=== PATIENT | female | born 1935 | race Caucasian/White ===

== ENCOUNTER 2017-10-03 17:18 | Emergency (ER) | payer MEDICARE ==
[2017-10-03] MEDS ORDERED: LABETALOL HCL 5 MG/ML 20ML VIAL IV ONE (17:57)
[2017-10-03] MEDS ORDERED: OXYMETAZOLINE HCL SPRAY 15 ML BOTTLE ONE (17:58)
[2017-10-03 18:17] LABS: BASOPHILS % (AUTO) 1.1 % (0.0-5.0); EOSINOPHILS % (AUTO) 2.5 % (0.0-8.0); HEMATOCRIT 39.2 % (36-48); LYMPHOCYTES % (AUTO) 36.1 % (21.0-51.0); MEAN CORPUSCULAR HEMOGLOBIN 30.4 pg (27.0-33.0); MEAN CORPUSCULAR HGB CONC 34.5 g/dL (32.0-36.0); MEAN CORPUSCULAR VOLUME 88.1 fL (79-99); NEUTROPHILS % (AUTO) 54.3 % (40.0-77.0); NUCLEATED RED BLOOD CELLS 0.1 % (0.0-0.19); PLATELET COUNT (AUTO) 216 K/uL (130-400); RED BLOOD CELL COUNT(AUTO) 4.45 MIL/uL (4.00-5.50); RED CELL DISTRIBUTION WIDTH 15.1 % (11.0-15.5); WHITE BLOOD COUNT (AUTO) 5.2 K/uL (4.8-10.8)
[2017-10-03 18:30] LABS: CREATININE 0.8 mg/dL (0.5-1.5)
[2017-10-03 18:31] LABS: INR 0.95 (0.85-1.15); PARTIAL THROMBOPLASTIN TIME 27.1 SEC (26.3-35.5)
[2017-10-03 19:01] LABS: APPEARANCE,URINE Clear (CLEAR); BILIRUBIN,URINE Negative (NEGATIVE); COLOR,URINE Yellow (YELLOW); GLUCOSE, URINE (UA) Negative (NEGATIVE); KETONES,URINE Negative (NEGATIVE); LEUKOCYTE ESTERASE ,URINE Negative (NEGATIVE); NITRATE,URINE Negative (NEGATIVE); OCCULT BLOOD,URINE Trace (NEGATIVE); PH,URINE 7.5 (5.0-8.0); PROTEIN,URINE Negative (NEGATIVE); UROBILINOGEN,URINE 0.2 mg/dL (0.2-1.0)
[2017-10-03 19:29] LABS: ALBUMIN 3.9 g/dL (3.5-5.0); BILIRUBIN,TOTAL 0.5 mg/dL (0.2-1.0); TOTAL PROTEIN, SERUM 7.7 g/dL (6.0-8.3)
[2017-10-03 19:32] LABS: BACTERIA,URINE None Seen /HPF (None Seen); RBC,URINE 0-1 /HPF (0-1); SQUAMOUS EPITHELIAL CELL,UR None Seen /HPF (0-2); WBC,URINE None Seen /HPF (0-1)
== END 2017-10-03 19:21 | disposition home or self-care (01) ==
LOC: EDH 17:18
DX: R04.0 Epistaxis (principal); I10 Essential (primary) hypertension; Z88.8 Allergy status to other drugs, medicaments and biological substances; Z79.899 Other long term (current) drug therapy
CPT/HCPCS: 36415; 80053; 81001; 85025; 85610; 85730; 96374; 99284; J3490

== ENCOUNTER → 2019-06-02 | Outpatient (CLI) | payer MEDICARE | END | disposition home or self-care (01) | LOC: RAH 09:09 | PROVIDERS: ATTEND Internal Medicine | DX: R92.2 Inconclusive mammogram (principal); Z85.3 Personal history of malignant neoplasm of breast | CPT/HCPCS: 77065 ==

== ENCOUNTER 2019-09-16 06:58 | Emergency (ER) | payer MEDICARE | END 2019-09-16 08:00 | disposition home or self-care (01) | LOC: EDH 06:58 | DX: S52.601A Unspecified fracture of lower end of right ulna, initial encounter for closed fracture (principal); I10 Essential (primary) hypertension; Z88.6 Allergy status to analgesic agent; W18.39XA Other fall on same level, initial encounter; Y93.89 Activity, other specified; Y92.098 Other place in other non-institutional residence as the place of occurrence of the external cause; Y99.8 Other external cause status | CPT/HCPCS: 29125; 73110 ==

== ENCOUNTER → 2020-07-23 | Outpatient (CLI) | payer MEDICARE | END | disposition home or self-care (01) | LOC: OIH 09:17 | PROVIDERS: ATTEND Internal Medicine | DX: M16.0 Bilateral primary osteoarthritis of hip (principal) | CPT/HCPCS: 73502 ==

== ENCOUNTER 2020-07-24 03:00 | Emergency (ER) | payer MEDICARE ==
[2020-07-24] MEDS ORDERED: ONDANSETRON HCL 4 MG/2 ML VIAL ONE (03:58)
[2020-07-24 04:01] LABS: BASOPHILS % (AUTO) 0.9 % (0.0-5.0); EOSINOPHILS % (AUTO) 1.7 % (0.0-8.0); HEMATOCRIT 40.9 % (36-48); LYMPHOCYTES % (AUTO) 35.6 % (21.0-51.0); MEAN CORPUSCULAR HEMOGLOBIN 30.9 pg (27.0-33.0); MEAN CORPUSCULAR HGB CONC 33.7 g/dL (32.0-36.0); MEAN CORPUSCULAR VOLUME 91.7 fL (79-99); MONOCYTES % (AUTO) 6.8 % (3.0-13.0); NEUTROPHILS % (AUTO) 54.8 % (40.0-77.0); PLATELET COUNT (AUTO) 291 K/uL (130-400); RED BLOOD CELL COUNT(AUTO) 4.46 MIL/uL (4.00-5.50); RED CELL DISTRIBUTION WIDTH 14.1 % (11.0-15.5); WHITE BLOOD COUNT (AUTO) 6.6 K/uL (4.8-10.8)
[2020-07-24 04:09] LABS: CREATININE 0.9 mg/dL (0.5-1.5); POTASSIUM 4.1 mmol/L (3.5-5.1)
[2020-07-24 04:17] LABS: ALBUMIN 4.2 g/dL (3.5-5.0); BILIRUBIN,TOTAL 0.6 mg/dL (0.2-1.0); TOTAL PROTEIN, SERUM 7.6 g/dL (6.0-8.3)
[2020-07-24] MEDS ORDERED: LORAZEPAM 2 MG/ML 1 ML VIAL ONE (05:11)
[2020-07-24] MEDS ORDERED: PROCHLORPERAZINE EDISYLATE 10 MG/2 ML VIAL ONE (05:11)
[2020-07-24] MEDS ORDERED: SODIUM CHLORIDE 0.9% 50 ML IV ONE (05:12)
[2020-07-24 06:02] LABS: PROTHROMBIN TIME 10.9 SEC (9.6-11.6)
[2020-07-24 06:03] LABS: PARTIAL THROMBOPLASTIN TIME 25.4 SEC (26.3-35.5)
== END 2020-07-24 07:37 | disposition home or self-care (01) ==
LOC: EDH 03:00
DX: R42 Dizziness and giddiness (principal); R94.31 Abnormal electrocardiogram [ECG] [EKG]; R11.0 Nausea; R53.1 Weakness; R19.7 Diarrhea, unspecified; I10 Essential (primary) hypertension; M19.90 Unspecified osteoarthritis, unspecified site; Z88.8 Allergy status to other drugs, medicaments and biological substances; Z90.710 Acquired absence of both cervix and uterus; Z90.49 Acquired absence of other specified parts of digestive tract; Z79.899 Other long term (current) drug therapy
CPT/HCPCS: 36415; 70450; 71045; 80053; 82948; 83690; 84484; 85025; 85610; 85730; 93005 ×3; 96374; 96375; 99285; J0780; J2060; J2405

== ENCOUNTER → 2020-08-07 | Outpatient (CLI) | payer MEDICARE | END | disposition home or self-care (01) | LOC: OIH 10:09 | PROVIDERS: ATTEND Internal Medicine | DX: M16.12 Unilateral primary osteoarthritis, left hip (principal); M25.752 Osteophyte, left hip; M24.852 Other specific joint derangements of left hip, not elsewhere classified | CPT/HCPCS: 73502 ==

== ENCOUNTER → 2020-08-15 | Outpatient (CLI) | payer MEDICARE | END | disposition home or self-care (01) | LOC: OIH 09:29 | PROVIDERS: ATTEND Internal Medicine | DX: J44.9 Chronic obstructive pulmonary disease, unspecified (principal); I10 Essential (primary) hypertension; M47.814 Spondylosis without myelopathy or radiculopathy, thoracic region; M85.88 Other specified disorders of bone density and structure, other site | CPT/HCPCS: 71046 ==

== ENCOUNTER → 2021-05-15 | Outpatient (CLI) | payer MEDICARE | END | disposition home or self-care (01) | LOC: RAH 09:32 | PROVIDERS: ATTEND Internal Medicine | DX: I10 Essential (primary) hypertension (principal) | CPT/HCPCS: 71046 ==

== ENCOUNTER → 2022-02-24 | Outpatient (CLI) | payer MEDICARE | END | disposition home or self-care (01) | LOC: RAH 09:35 | PROVIDERS: ATTEND Internal Medicine | DX: S80.01XA Contusion of right knee, initial encounter (principal); X58.XXXA Exposure to other specified factors, initial encounter; Y93.89 Activity, other specified; Y92.89 Other specified places as the place of occurrence of the external cause; Y99.8 Other external cause status; M17.31 Unilateral post-traumatic osteoarthritis, right knee | CPT/HCPCS: 73562 ==

== ENCOUNTER → 2022-03-27 | Outpatient (CLI) | payer MEDICARE | END | disposition home or self-care (01) | LOC: RAH 09:13 | PROVIDERS: ATTEND Internal Medicine | DX: M25.571 Pain in right ankle and joints of right foot (principal); M19.071 Primary osteoarthritis, right ankle and foot; M85.80 Other specified disorders of bone density and structure, unspecified site | CPT/HCPCS: 73600; 73620 ==

== ENCOUNTER → 2022-07-04 | Outpatient (CLI) | payer MEDICARE | END | disposition home or self-care (01) | LOC: RAH 08:34 | PROVIDERS: ATTEND Internal Medicine | DX: R92.2 Inconclusive mammogram (principal); Z85.3 Personal history of malignant neoplasm of breast; Z90.11 Acquired absence of right breast and nipple | CPT/HCPCS: 77065 ==

== ENCOUNTER → 2023-05-19 | Outpatient (CLI) | payer MEDICARE | END | disposition home or self-care (01) | LOC: RAH 09:47 | PROVIDERS: ATTEND Internal Medicine | DX: M16.11 Unilateral primary osteoarthritis, right hip (principal); I10 Essential (primary) hypertension; M25.551 Pain in right hip; M47.26 Other spondylosis with radiculopathy, lumbar region; M41.26 Other idiopathic scoliosis, lumbar region; J84.10 Pulmonary fibrosis, unspecified; M47.25 Other spondylosis with radiculopathy, thoracolumbar region | CPT/HCPCS: 71046; 72100; 73502 ==

== ENCOUNTER 2023-08-27 18:05 | Emergency (ER) | payer MEDICARE ==
[~2023-08-27] VITALS: Ht 165.1 cm; Wt 56.7 kg
[2023-08-27] MEDS: ASPIRIN 325MG TAB PO ONE (18:50)
[2023-08-27 19:44] LABS: BASOPHILS # (AUTO) 0.03 K/uL (0.00-0.20); BASOPHILS % (AUTO) 0.3 % (0.0-5.0); EOSINOPHILS # (AUTO) 0.05 K/uL (0.00-0.70); EOSINOPHILS % (AUTO) 0.5 % (0.0-8.0); HEMATOCRIT 39.2 % (36-48); IMMATURE GRANULOCYTE ABSOLUTE 0.03 K/uL (0-1); LYMPHOCYTES # (AUTO) 1.8 K/uL (1.0-4.8); LYMPHOCYTES % (AUTO) 17.7 % (21.0-51.0); MEAN CORPUSCULAR HEMOGLOBIN 30.4 pg (27.0-33.0); MEAN CORPUSCULAR HGB CONC 34.4 g/dL (32.0-36.0); MEAN CORPUSCULAR VOLUME 88.3 fL (79-99); MONOCYTES # (AUTO) 0.5 K/uL (0.1-1.0); MONOCYTES % (AUTO) 5.1 % (3.0-13.0); NEUTROPHILS # (AUTO) 7.6 K/uL (1.8-7.7); NEUTROPHILS % (AUTO) 76.1 % (40.0-77.0); PLATELET COUNT (AUTO) 206 K/uL (130-400); RED BLOOD CELL COUNT(AUTO) 4.44 MIL/uL (4.00-5.50); RED CELL DISTRIBUTION WIDTH 13.7 % (11.0-15.5)
[2023-08-27 20:02] LABS: B-TYPE NATRIURETIC PEPTIDE 195 pg/mL (0-100)
[2023-08-27 20:09] LABS: BILIRUBIN,TOTAL 0.4 mg/dL (0.2-1.0); CREATININE 0.9 mg/dL (0.5-1.0); MAGNESIUM 1.9 mg/dL (1.80-2.40); POTASSIUM 4.6 mmol/L (3.5-5.1); TOTAL PROTEIN, SERUM 7.5 g/dL (6.0-8.3)
[2023-08-27 21:09] LABS: ADD UA MICROSCOPIC NO; APPEARANCE,URINE CLEAR (CLEAR); BILIRUBIN,URINE NEGATIVE (NEGATIVE); COLOR,URINE COLORLESS (YELLOW); GLUCOSE, URINE (UA) NEGATIVE (NEGATIVE); KETONES,URINE NEGATIVE (NEGATIVE); LEUKOCYTE ESTERASE ,URINE NEGATIVE Leu/uL (NEGATIVE); NITRATE,URINE NEGATIVE (NEGATIVE); OCCULT BLOOD,URINE NEGATIVE (NEGATIVE); PROTEIN,URINE NEGATIVE (NEGATIVE); UROBILINOGEN,URINE 0.2 mg/dL (0.2-1.0)
[2023-08-27 21:50] VITALS: BP 150/87; PULSE 68; RESP 16; O2SAT 97
== END 2023-08-27 21:53 | disposition home or self-care (01) ==
LOC: EDH 18:05
DX: F41.0 Panic disorder [episodic paroxysmal anxiety] (principal); N18.9 Chronic kidney disease, unspecified; Z88.8 Allergy status to other drugs, medicaments and biological substances
CPT/HCPCS: 36415; 71045; 80053; 81003; 83735; 83880; 84484; 85025; 93005

== ENCOUNTER → 2024-02-25 | Outpatient (CLI) | payer MEDICARE | END | disposition home or self-care (01) | LOC: RAH 13:29 | PROVIDERS: ATTEND Internal Medicine | DX: N64.89 Other specified disorders of breast (principal); Z85.3 Personal history of malignant neoplasm of breast | CPT/HCPCS: 77065 ==

== ENCOUNTER 2024-05-14 07:53 | Emergency (ER) | payer MEDICARE ==
[~2024-05-14] VITALS: Ht 157.5 cm; Wt 68.0 kg
[~2024-05-14 07:53] MED LIST: GABA-529 PO; HYDR25TA PO; MECL-226 PO; PANT40TA54 PO; SPIR50TA5 PO
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
--- NOTE | 2024-05-14 08:52 | HMCIMG ---
Exam Type: PELVIS 1-2VWS Clinical Information: increased pain post fx Comparison: None Findings and impression: Bilateral hip replacement. Fractures of the proximal aspect of the left superior pubic ramus and the distal aspect of the left inferior pubic ramus, minimally displaced. Osteopenia. Preliminary report with this information was sent by the on-call radiologist to ordering physicians time of exam.
--- NOTE | 2024-05-14 10:20 | HMCIMG ---
Exam Type: CT PELVIS W/O CONTRAST, CT LUMBAR SPINE W/O CONTRAST Clinical Information: new rt SI pain Comparison: None Findings: Osteopenia. Status post bilateral hip replacement, with adequate alignment of both prosthesis. Acute fracture proximal aspect left superior pubic ramus and mid to distal aspect left inferior pubic ramus. In addition, comminuted fractures involving both sacral wings without significant displacement. Degenerative changes of the visualized lumbar spine. No soft tissue acute abnormalities. The lumbar spine demonstrates osteopenia as well as degenerative disc changes at multiple levels. Degeneration of the facets seen as well. No acute lumbar vertebral body fractures. IMPRESSION: Left obturator ring fractures. Bilateral sacral wing fractures. Osteopenia. Degenerative changes.
[2024-05-14 12:22] VITALS: BP 141/68; PULSE 67; RESP 20; TEMP 98.3; O2SAT 98
[2024-05-14] MEDS: HYDROcodone/APAP 5/325 1 TAB TABLET PO ONE (13:07)
[2024-05-14] MEDS ORDERED: LACT10SO85 PO (13:08)
== END 2024-05-14 13:24 | disposition home or self-care (01) ==
LOC: EDH 07:53 → EDBD 07:53 → EDH 13:24
DX: S32.592A Other specified fracture of left pubis, initial encounter for closed fracture (principal); S32.512A Fracture of superior rim of left pubis, initial encounter for closed fracture; S32.10XA Unspecified fracture of sacrum, initial encounter for closed fracture; R10.2 Pelvic and perineal pain; K59.00 Constipation, unspecified; I10 Essential (primary) hypertension; Z79.899 Other long term (current) drug therapy; Z90.49 Acquired absence of other specified parts of digestive tract; Z90.710 Acquired absence of both cervix and uterus; Z96.643 Presence of artificial hip joint, bilateral; V19.9XXA Pedal cyclist (driver) (passenger) injured in unspecified traffic accident, initial encounter; Y93.89 Activity, other specified; Y92.89 Other specified places as the place of occurrence of the external cause; Y99.8 Other external cause status
CPT/HCPCS: 72131; 72170; 72192; 99285

== ENCOUNTER 2024-05-16 12:50 | Emergency (ER) | payer MEDICARE ==
[~2024-05-16] VITALS: Ht 165.1 cm; Wt 56.7 kg
[~2024-05-16 12:50] MED LIST changes: +LACT10SO85 PO
--- NOTE | 2024-05-16 13:21 | ERN ---
ED Note History of Present Illness Stated Complaint: R HIP PAIN S/P SX Chief Complaint: Hip Pain/Injury Time Seen by MD: 12:55 Dictation: 88-year-old female presents to the ED for evaluation of right hip pain worsening this morning. Patient denies any fall, trauma, injury or any other associated symptoms at this time. Patient states she is coming from residence where she is usually able to ambulate without assistance. Patient has history of hip surgery couple of years ago. Allergies: Uncoded Allergies: PADSON (Allergy, Severe, 04/15/17) Home Meds Active Scripts Lactulose (Lactulose) 10 Gram/15 Ml Solution, 30 ML PO BID for constipation, #500 ML 0 Refills Prov:MARQUES OSEGUERA MD 05/14/24 Reported Medications Spironolactone (Spironolactone) 50 Mg Tablet, 1 TAB PO DAILY for 30 Days, #30 TAB 0 Refills 04/09/24 Gabapentin (Gabapentin) 100 Mg Capsule, 300 MG PO DAILY, CAP 04/09/24 Pantoprazole Sodium (Pantoprazole Sodium) 40 Mg Tablet.dr, 1 TAB PO DAILY for 30 Days, #30 TAB 0 Refills 04/09/24 Hydrochlorothiazide (Hydrochlorothiazide) 25 Mg Tablet, 1 TAB PO DAILY for 30 Days, #30 TAB 0 Refills 04/09/24 Meclizine HCl (Meclizine HCl) 12.5 Mg Tablet, 12.5 MG PO TID, TAB 04/09/24 Past Medical History Past Medical History: Cancer, Hypertension, Other Additional Past Medical Hx: R HIP FX, L BREAST AND L CHEECK CA Surgical History: Other Surgical History Other: R HIP FX History: Not Applicable Review of System Dictation Constitutional: Negative for fever,chills, and weight loss Eyes: Negative for injury, pain,redness, and discharge ENT: Negative for injury,pain or swelling Cardiovascular: Negative for chest pain, palpitations, and edema Respiratory: Negative for shortness of breath, cough, and wheezing, Abdomen/GI: Negative for abdominal pain, nausea, vomiting, diarrhea, and constipation Back: Negative for injury and pain : Negative for injury, bleeding and discharge MS/Extremity: Positive for right hip pain Negative for injury and deformity Skin: Negative for rash, and discoloration Neuro: Negative for headache, weakness, numbness, tingling, and seizure Psych: Negative for suicide ideation, homicidal ideation, and hallucinations Initial Vital Sign VS Vital Signs Date Time Temp Pulse Resp B/P (MAP) Pulse Ox O2 Delivery O2 Flow Rate FiO2 05/16/24 12:52 98.1 90 17 135/77 95 Room Air 0 05/16/24 12:52 21 Physical Exam Dictation General: awake, alert, NAD Head/Face: Normocephalic, atraumatic Eyes: PERRL, EOMI, vision at baseline ENT: oral cavity clear, TMs clear, no signs of infection Neck: Trachea midline, supple, no nuchal rigidity Cardiovascular: RRR, normal S1/S2, No MRGs, no JVD Respiratory: CTAB, no respiratory distress, No rales or wheezes Abdomen: Soft, non-tender, non-distended, normal bowel sounds, no guarding or rebound. Skin: Warm, dry, normal turgor, no rash MS/Extremity: Pulses equal, no cyanosis, neurovascular intact, FROM, positive for right hip tenderness Neuro: COAx4, GCS 15, strength 5/5, CN 2-12 intact, normal cerebellar exam, normal gait, Psych: Normal behavior, mood, and affect normal ED Course ED Course Orders Procedure Category Date Status Time Hip Unilat 2-3vw Right RAD 05/16/24 Taken 13:21 Ketorolac PHA 05/16/24 Complete Tromethamine 15mg/Ml 13:30 Lidocaine (Lidoderm PHA 05/16/24 Complete Patch 5%) 13:30 Current Medications Medications (Trade) Dose Ordered Sig/Sharee Route PRN Reason Start Time Stop Time Status Last Admin Dose Admin Ketorolac Tromethamine (toRADol) 15 mg ONCE ONCE IV 05/16/24 13:30 05/16/24 13:31 DC 05/16/24 13:36 Lidocaine (Lidoderm Patch 5%) 1 patch ONCE ONCE TP 05/16/24 13:30 05/16/24 13:31 DC 05/16/24 13:36 Vital Signs Date Time Temp Pulse Resp B/P (MAP) Pulse Ox O2 Delivery O2 Flow Rate FiO2 05/16/24 12:52 98.1 90 17 135/77 95 Room Air* 0 21 05/16/24 12:52 98.1 90 17 135/77 95 Room Air 0 Medical Decision Making MDM MDM: Differential diagnosis: Hip pain, strain Previous outside records reviewed: Old ER visits. Need for hospitalization: Patient does not meet criteria for hospitalization. Need for emergency major/minor surgery: No Patient's prior external medical records from other ER visits were reviewed by me as indicated. Prior testing and results from previous visits were reviewed. Prior tests were taken into account with medical decision making and resource utilization, independent historian/historians were used to obtain complete medical history. I independently interpreted the test that were performed, results were reviewed by me and considered findings on radiology if ordered. Medical management and examination interpretation discussions were had by me with other qualified healthcare professionals as indicated for the patient's care. DX & DISP Disposition: Discharge Departure Impression: Primary Impression: Right hip pain Condition: Stable Referrals: VEDA LYNN MD (PCP) KHRIS SNYDER MD May 16, 2024 13:21
[2024-05-16] MEDS: LIDOCAINE 5% TOPICAL PATCH TP ONE (13:36)
[2024-05-16] MEDS: ketOROlac 15MG/ML VIAL (15MG/ML) IV ONE (13:36)
--- NOTE | 2024-05-16 14:15 | HMCIMG ---
HIP UNILAT 2-3VW RIGHT REASON: pain COMPARISON: None TECHNIQUE: 3 views were obtained including the pelvis and both hips. FINDINGS: Pelvic fractures are again noted. These include inferior pubic ramus on the left as well as a the junction of the superior pubic ramus and acetabulum. There is a small amount of protrusion of the acetabular cup into the pelvis. Appearance and alignment are unchanged compared to prior exam 05/14/2024. CT exam described sacral fractures, these are not visualized in the plain radiographs. Hip joint prostheses appear unremarkable. IMPRESSION: 1. Left inferior pubic ramus and left acetabular fractures as described, alignment unchanged compared to prior exam. 2. No new finding.
[2024-05-16 14:22] VITALS: BP 122/70; PULSE 87; RESP 16; TEMP 98.1; O2SAT 96
== END 2024-05-16 14:27 | disposition home or self-care (01) ==
LOC: EDH 12:50
DX: M25.551 Pain in right hip (principal); I10 Essential (primary) hypertension; Z79.899 Other long term (current) drug therapy
CPT/HCPCS: 99283; 96374; 73502; J1885

== ENCOUNTER → 2024-09-20 | Outpatient (CLI) | payer MEDICARE ==
--- NOTE | 2024-09-20 09:36 | HMCIMG ---
UPPER GI SERIES History: EPIGASTRIC PAIN;Nausea with vomiting;Gastritis;GERD w/ESOPHAGITIS Comparison: none Contrast: barium sulfate suspension, effervescent granules TECHNIQUE: EXAMINATION IS DONE UNDER FLUOROSCOPIC CONTROL, WITH FLUOROSCOPIC SPOTS OBTAINED. ALSO, OVERHEAD AP, LATERAL AND OBLIQUE VIEWS WERE OBTAINED. FINDINGS: Under fluoroscopic evaluation, the patient's esophagus demonstrates normal course, contour and caliber. Normal motility is seen. There is a small hiatal hernia and there is gastroesophageal reflux to the thoracic inlet esophageal level. The stomach, duodenal bulb, duodenal C-loop, and visualized proximal small bowel show no extrinsic compression, fixed filling defect, ulcerations or abnormalities in mucosal pattern. No tumor is identified. There is no gastric outlet obstruction. There is no extravasation. There is no evidence of malrotation. IMPRESSION: Small hiatal hernia. Gastroesophageal reflux to the thoracic inlet esophageal level.
== END | disposition home or self-care (01) ==
LOC: RAH 08:38
PROVIDERS: ATTEND Internal Medicine
DX: K21.00 Gastro-esophageal reflux disease with esophagitis, without bleeding (principal); K44.9 Diaphragmatic hernia without obstruction or gangrene; K29.70 Gastritis, unspecified, without bleeding; R10.13 Epigastric pain; R11.2 Nausea with vomiting, unspecified
CPT/HCPCS: 74240

== ENCOUNTER → 2024-12-22 | Outpatient (CLI) | payer MEDICARE ==
--- NOTE | 2024-12-22 16:22 | HMCIMG ---
EXAM: LUMBAR SPINE 2-3VWS REASON: LUMBAR RADICULOPATHY. COMPARISON: None. TECHNIQUE: 3 views of the lumbar spine were obtained. FINDINGS: There is normal appearance of the lumbar vertebral bodies. There is severe osteopenia. There are multilevel marginal spurs suggesting of osteolytic changes. There are multilevel disc disease seen throughout the lumbar spine most severe at L5-S1 followed by L1-L2 followed by L4-L5 followed by other levels. Disc interspace heights are preserved. Alignment is normal. There are no visible fractures. Soft tissues appear unremarkable. There is diffuse atherosclerotic change of the abdominal aorta and iliac vessels. There is bilateral hip arthroplasties seen at the study which appears to be anatomical position. There is ORIF of the left acetabular with orthopedic plates seen at the edges study. There is an orthopedics pins seen in the left SI joint from prior surgery. IMPRESSION: 1. Multilevel osteoarthritic changes and disc disease as described above. This is amenable for epidural steroid injections for pain management. 2. Osteopenia 3. No acute fracture or malalignment.
--- NOTE | 2024-12-22 16:26 | HMCIMG ---
THORACIC SPINE 2VWS REASON: THORACIC BACK PAIN COMPARISON: None. TECHNIQUE: 2 images were obtained. FINDINGS: There are normal appearing vertebral bodies. The severe osteopenia. There is mild to moderate multilevel disc disease most severe at the lower thoracic spine at T11-T12. There is atherosclerotic change of the abdominal aorta and iliac vessels.. There are no visible fractures. There is ORIF of the right clavicle with orthopedic plates and screws in place. Soft tissues appear unremarkable. IMPRESSION: 1. No acute fracture or dislocation 2. Severe osteopenia 3. Multilevel disc disease as described above..
== END | disposition home or self-care (01) ==
LOC: RAH 09:20
PROVIDERS: ATTEND Internal Medicine
DX: M47.26 Other spondylosis with radiculopathy, lumbar region (principal); M51.16 Intervertebral disc disorders with radiculopathy, lumbar region; M51.34 Other intervertebral disc degeneration, thoracic region; M53.3 Sacrococcygeal disorders, not elsewhere classified; M46.06 Spinal enthesopathy, lumbar region; I70.0 Atherosclerosis of aorta; Z96.643 Presence of artificial hip joint, bilateral
CPT/HCPCS: 72070; 72100